=== PATIENT | male | born 1955 | race Caucasian/White ===

== ENCOUNTER 2020-11-22 14:53 | Day surgery (SDC) | payer MEDICARE ==
[~2020-11-22] VITALS: Ht 175.3 cm; Wt 110.0 kg
[2020-11-22] VITALS (8 sets, daily range): BP systolic 136–152; BP diastolic 62–74; PULSE 65–87; TEMP 97.2–97.6
--- NOTE | 2020-11-22 15:15 | NUR ---
Patient ambulated to [facility] independently with slow, steady gait. Reports using cane at home. Alert and oriented. Vital signs obtained. Consent signed. Heart tones regular, Lungs clear. Bowel sounds present. 18G IV started in left wrist, infusing without difficulty. Blood sugar 162. Bed rails up, call light in reach, non slip socks on. Instructed to call before getting up or for assistance.
--- NOTE | 2020-11-22 16:18 | NUR ---
Patient reports history of suicide attempt from when he was in highschool. Patient feels he has a sufficient support system at home and can speak with his therapist if needed and does not need to speak with anyone about this while at in our care.
--- NOTE | 2020-11-22 16:20 | NUR ---
brought to bedside.
--- NOTE | 2020-11-22 17:00 | NUR ---
Patient requested urinal and assistance with urination. Patient was able to void 150 ml clear, gilbert urine. Reported some relief.
[2020-11-22] MEDS ORDERED: LIPITOR20 MG PO (17:06)
[2020-11-22] MEDS ORDERED: PROAIR HFA0.09 MG/AC IH (17:06)
[2020-11-22] MEDS ORDERED: ZYRTEC 10MG10 MG PO (17:07)
[2020-11-22] MEDS ORDERED: FLEXERIL 1010 MG/TAB PO (17:10)
[2020-11-22] MEDS ORDERED: NEURONTIN100 MG/CAP PO (17:11)
[2020-11-22] MEDS ORDERED: AMARYL4 MG PO (17:13)
--- NOTE | 2020-11-22 17:15 | NUR ---
Patient request help urination into urinal. Able to void 200 ml clear, gilbert urine. Reports some relief.
[2020-11-22] MEDS ORDERED: HYZAAR 25 MG-101 TAB PO (17:32)
[2020-11-22] MEDS ORDERED: NOVOLOG 100U100 U/M1 SQ ×2 (17:38→17:39)
[2020-11-22] MEDS ORDERED: TOPROL XL 25MG25 MG PO (17:41)
[2020-11-22] MEDS ORDERED: PRIL40 PO (17:42)
[2020-11-22] MEDS ORDERED: ZOLOFT 100MG100 MG PO (17:43)
[2020-11-22] MEDS ORDERED: DESYREL 100MG100 MG PO (17:44)
[2020-11-22] MEDS ORDERED: B COMPLEX #11 TA1 PO (17:45)
[2020-11-22] MEDS ORDERED: VITAMINC1000TA PO (17:45)
[2020-11-22] MEDS ORDERED: VITAMIND3 5000 PO (17:47)
[2020-11-22] MEDS ORDERED: COLESTID 1GM1 G PO (17:48)
[2020-11-22] MEDS ORDERED: KLOR-CON 1010 MEQ PO (17:51)
[2020-11-22] MEDS ORDERED: FLOMAX 0.40.4 MG/CAP PO (17:52)
[2020-11-22] MEDS ORDERED: LASIX 20MG TABL20 MG PO (17:58)
[2020-11-22] MEDS ORDERED: RISPERDAL3 MG PO (18:00)
[2020-11-22] MEDS ORDERED: LEVEMIR100 U/ML SQ (18:01)
--- NOTE | 2020-11-22 20:00 | NUR ---
RECEIVED REPORT FROM SILICA FILTER OPERATORMICHAEL. WAITING PATIENT ARRIVAL/ADMISSION TO ROOM 342.
--- NOTE | 2020-11-22 20:14 | NUR ---
RECEIVED PATIENT FROM PACU VIA HOSPITAL BED. REPORTS HAVING LEVEL 8/10 PAIN TO BLADDER. CBI RUNNING FAST.
[2020-11-23] VITALS (8 sets, daily range): BP systolic 110–182; BP diastolic 41–80; PULSE 64–86; TEMP 97.6–99.7
--- NOTE | 2020-11-23 05:35 | NUR ---
PATIENT CURRENTLY RESTING WITH EYES CLOSED. HAD TO HAND IRRIGATE CATHETER X2 WITH ASSISTANCE FROM CHARGE NURSEMILAGRO AND DEFLATING OF CATHETER BALLOON BY CHARGE NURSE DURING HAND IRRIGATIONS AFTER OBSERVING CBI NO DRAINING AND OBSERVED BLOOD BACKING UP IRRIGATING PORT OF CATHETER 3 WAY WITH OBSERVED LEAKING AROUND CATHETER AT TIP OF PENIS OF BLOOD AND PATIENT C/O PAIN OF BLADDER SPASMS. SEE MAR FOR MEDS GIVEN FOR BLADDER DISCOMFORT. CBI RUNNING RAPID THROUGHOUT NIGHT WITH LIGHT RED TINGED CATHETER OUTPUT. OXYGEN ON PER NC, PATIENT DID NOT BRING CPAP FROM HOME. ORDER IN SYSTEM FOR CPAP, RESP THERAPIST PLACED PATIENT ON O2 PER NC INSTEAD OF SETTING UP CPAP FOR PATIENT'S SLEEP. IV FLUIDS INFUSING WITH NO PROBLEMS.
--- NOTE | 2020-11-23 07:01 | NUR ---
CHANGE OF SHIFT REPORT GIVEN TO DAY SHIFT NURSE, ESTIVEN GODDARD.
--- NOTE | 2020-11-23 11:46 | NUR ---
Sw tried to complete assessment but pt was drowsy and requested I come back later. Nurse was in room and requested as well. Sw to try back later at another time.
--- NOTE | 2020-11-23 14:00 | NUR ---
Patient has been doing well today. Urine is pink/light red. No clots noted. CBI flowing at moderate rate. Kandi helped patient get cleaned up this morning and changed his gown/bedding. Patient has been very sleepy this morning, he stated he did not sleep most the night. No complaints of pain or nausea. No other changes at this time. Call light within reach.
--- NOTE | 2020-11-23 14:14 | NUR ---
This RN recieved report from RUPESH Evans. Patient is currently resting in bed with in the room. Patient did not have any complaints at this time.
--- NOTE | 2020-11-23 19:34 | NUR ---
Awake, alert, oriented x 4, able to make needs known, CBI ongoing w/o issue- urine light pink in color, updated patient on plan of care, verbalized understanding and did teach back, denies pain, will continue to monitor
[2020-11-24 03:22] VITALS: BP 121/57; PULSE 75; TEMP 98.6
[2020-11-24 07:01] VITALS: BP 135/66; PULSE 74; TEMP 97.9
--- NOTE | 2020-11-24 08:30 | NUR ---
Patient is voiding, red tinged urine. No clots noted. Denies pain or nausea. Patient is hoping to discharge home this afternoon. He was worried about not being able to void. Is voiding without issues now. His will be here later. No other changes at this time. Call light within reach.
--- NOTE | 2020-11-24 09:10 | NUR ---
I spoke with pt concerning his current situation. He lives at home with his in [place]. He is independant in ADL's and has no steps to navigate at his house. He uses CPAP at night only, no O2 during the day. He also uses a glucometer for DM management. His , Pao, is his DPOA. The form is at home in [place] and he did not think they could get it here before discharge. PCP is Handy Corea. If he is unable to get in to see him they do go to Urgent Care. His current pharmacy is [facility] in [place] on . He stated that he does not have difficulty in obtaining medications. Pt stated he plans to go home with his upon discharge. 's phone is [phone].
--- NOTE | 2020-11-24 11:22 | NUR ---
First visit from the butcher all round. Chaplain marinellid with patient
[2020-11-24 11:40] VITALS: BP 122/52; PULSE 81; TEMP 98.3
--- NOTE | 2020-11-24 15:30 | NUR ---
Patient is discharging home. Discharge instructions discussed with patient and his . No questions verbalized. INT discontinued. All belongings packed up by his . Explained when follow up appointment is. Copies of discharge instructions sent with patient. Patient walked out via wheel chair by Kandi DYE.
== END 2020-11-24 15:30 | disposition home or self-care (01) ==
LOC: SDCO 14:53 → SURG 14:53 → SDCO 16:00 → SURG 21:49 → SDCO 11-24 15:30
DX: N40.1 Benign prostatic hyperplasia with lower urinary tract symptoms (principal); N13.8 Other obstructive and reflux uropathy; R35.0 Frequency of micturition; R33.8 Other retention of urine; E11.9 Type 2 diabetes mellitus without complications; Z79.4 Long term (current) use of insulin; Z79.899 Other long term (current) drug therapy; I10 Essential (primary) hypertension; G47.33 Obstructive sleep apnea (adult) (pediatric); K21.9 Gastro-esophageal reflux disease without esophagitis
CPT/HCPCS: OP; J0690; J1815; J2175; J2405; J2704; J3010; J3480; J7030